=== PATIENT | male | born 1970 ===

== ENCOUNTER 2018-12-24 14:57 | Inpatient (IN) | payer OTHER ==
[2018-12-24 15:03] VITALS: BMI 25.4
--- NOTE | 2018-12-24 15:53 | RAD ---
Date of service: 12/24/2018 HISTORY: possible admission COMPARISON: No prior. FINDINGS: LUNGS: No active pulmonary disease. PLEURA: No significant pleural effusion identified, no pneumothorax apparent. CARDIOVASCULAR: No atherosclerotic calcification present Normal. OSSEOUS STRUCTURES: No significant abnormalities. VISUALIZED UPPER ABDOMEN: Normal. OTHER FINDINGS: None. IMPRESSION: No active disease.
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
[2018-12-24 16:34] LABS: BASO % 0.4 % (0.0-2.0); EOS % 0.5 % (0.0-4.0); HEMOGLOBIN 14.8 g/dL (12.0-18.0); LYMPH # 1.5 K/uL (1.0-4.3); LYMPH % 26.1 % (20.0-40.0); MEAN CELL VOLUME 95.6 fl (80.0-94.0); MEAN CORPUSCULAR HEMOGLOBIN 31.5 pg (27.0-31.0); MEAN PLATELET VOLUME 7.5 fl (7.2-11.7); MONO # 0.4 K/uL (0.0-0.8); MONO % 7.5 % (0.0-10.0); NEUT # 3.9 K/uL (1.8-7.0); NEUT % 65.5 % (50.0-75.0); NRBC % 0.1 % (0.0-0.0); RBC 4.69 Mil/uL (4.40-5.90); RED CELL DISTRIBUTION WIDTH 14.3 % (11.5-14.5); WHITE BLOOD COUNT 5.9 K/uL (4.8-10.8)
--- NOTE | 2018-12-24 16:46 | CT ---
Date of service: 12/24/2018 PROCEDURE: CT HEAD WITHOUT CONTRAST. HISTORY: AMS COMPARISON: None available. TECHNIQUE: Axial computed tomography images were obtained through the head/brain without intravenous contrast. Radiation dose: Total exam DLP = 817.32 mGy-cm. This CT exam was performed using one or more of the following dose reduction techniques: Automated exposure control, adjustment of the mA and/or kV according to patient size, and/or use of iterative reconstruction technique. FINDINGS: HEMORRHAGE: No intracranial hemorrhage. BRAIN: Limited subcortical white matter lucency is appreciated in multiple areas of the bilateral frontal lobes, left greater than right with remaining white matter unremarkable including throughout the corpus callosum as imaged. This is abnormal for the age of the patient and follow-up MRI is advised with and without contrast for added characterization. No cortical edema. No mass effect. No suspicious extra-axial collection with posterior fossa contents unremarkable. VENTRICLES: Unremarkable. No hydrocephalus. CALVARIUM: Unremarkable. PARANASAL SINUSES: Unremarkable as visualized. No significant inflammatory changes. MASTOID AIR CELLS: Unremarkable as visualized. No inflammatory changes. OTHER FINDINGS: None. IMPRESSION: Abnormal white matter lucency may reflect infectious or inflammatory causes or even demyelination though etiology such as hypertension and migraine headaches are a possibility as well. Neoplasm is unlikely. Follow-up MRI with and without contrast is advised for further characterization. If MRI cannot be obtained then follow-up CT with contrast is advised.
[2018-12-24 16:48] LABS: ALB/GLOB RATIO 1.4 (1.0-2.1); ALBUMIN 4.9 g/dL (3.5-5.0); ALT/SGPT 28 U/L (21-72); AST/SGOT 34 U/L (17-59); BLOOD UREA NITROGEN 13 mg/dl (9-20); CALCIUM 9.8 mg/dL (8.4-10.2); GFR NON-AFRICAN AMERICAN > 60
[2018-12-24 16:56] LABS: ABG ALLEN TEST YES; ARTERIAL BLOOD GAS HCO3 28.1 mmol/L (21-28); ARTERIAL BLOOD GAS O2 SAT 99.7 % (95-98); ARTERIAL BLOOD GAS PCO2 41 mm/Hg (35-45); ARTERIAL BLOOD GAS PH 7.45 (7.35-7.45); ARTERIAL BLOOD GAS PO2 89 mm/Hg (80-100); ARTERIAL BLOOD GAS TCO2 29.8 mmol/L (22-28)
[2018-12-24 17:01] LABS: BARBITURATES, UR NEGATIVE (NEGATIVE); BENZODIAZEPINES, UR NEGATIVE (NEGATIVE); OPIATES, UR NEGATIVE (NEGATIVE); PHENCYCLIDINE, UR NEGATIVE (NEGATIVE)
[2018-12-24] MEDS ORDERED: Iohexol 300 100 ML IJ ONE (19:46)
[2018-12-24] MEDS ORDERED: Sodium Chloride 0.9% 50 ML IV ONE (19:47)
[2018-12-24] MEDS: Lactated Ringer's 1,000 ML IV SCH (22:37)
[2018-12-25 00:23] LABS: URINE BILIRUBIN NEGATIVE (NEGATIVE); URINE BLOOD NEGATIVE (NEGATIVE); URINE CLARITY CLEAR (Clear); URINE COLOR STRAW (YELLOW); URINE GLUCOSE (UA) NEG (NEGATIVE); URINE LEUKOCYTE ESTERASE NEG Leu/uL (Negative); URINE PROTEIN NEGATIVE (NEGATIVE); URINE UROBILINOGEN 0.2-1.0 mg/dL (0.2-1.0)
[2018-12-25 06:38] LABS: HEMOGLOBIN 14.3 g/dL (12.0-18.0); MEAN CELL VOLUME 96.1 fl (80.0-94.0); MEAN CORPUSCULAR HEMOGLOBIN 31.6 pg (27.0-31.0); MEAN CORPUSCULAR HGB CONC 32.9 g/dL (33.0-37.0); RBC 4.53 Mil/uL (4.40-5.90); RED CELL DISTRIBUTION WIDTH 14.7 % (11.5-14.5); WHITE BLOOD COUNT 4.9 K/uL (4.8-10.8)
[2018-12-25 07:01] LABS: ALB/GLOB RATIO 1.4 (1.0-2.1); ALBUMIN 4.2 g/dL (3.5-5.0); ALT/SGPT 28 U/L (21-72); AST/SGOT 30 U/L (17-59); BLOOD UREA NITROGEN 11 mg/dl (9-20); CALCIUM 9.3 mg/dL (8.4-10.2); GFR NON-AFRICAN AMERICAN > 60
[2018-12-25] MEDS ORDERED: Gadodiamide 287 MG/ML VIAL (15ML) IV ONE (08:01)
--- NOTE | 2018-12-25 09:06 | CARD ---
APPROVED REPORT Date of service: 12/24/2018 EKG Measurement Heart [id number] <Conclusion> Normal sinus rhythm Normal ECG
--- NOTE | 2018-12-25 11:20 | CT ---
Date of service: 12/24/2018 PROCEDURE: CT HEAD WITH CONTRAST HISTORY: AMS COMPARISON: None available. TECHNIQUE: Axial computed tomography images were obtained through the head/brain with intravenous contrast. Contrast dose: Omnipaque 300, 95 cc Radiation dose: Total exam DLP = 794.59 mGy-cm. This CT exam was performed using one or more of the following dose reduction techniques: Automated exposure control, adjustment of the mA and/or kV according to patient size, and/or use of iterative reconstruction technique. FINDINGS: HEMORRHAGE: No intracranial hemorrhage. BRAIN: Stable limited subcortical white-matter change identified the bilateral cerebral hemispheres, predominantly near the vertex affecting bilateral frontal lobes and possibly left parietal lobe. No mass-effect is seen in the interval or cortical edema. No interval suspicious extra-axial collection with the corpus callosum remaining normal in CT density. No abnormal intracranial enhancement identified including in the areas of subcortical density abnormality. VENTRICLES: Unremarkable. No hydrocephalus. CALVARIUM: Unremarkable. PARANASAL SINUSES: Unremarkable as visualized. No significant inflammatory changes. MASTOID AIR CELLS: Unremarkable as visualized. No mastoid effusion. OTHER FINDINGS: None. IMPRESSION: No interval abnormal intracranial enhancement appreciated. Persistent white matter abnormality remains limited to the bilateral frontal lobe superiorly and possibly left parietal lobe. Follow-up MRI with and without contrast is advised when feasible.
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
--- NOTE | 2018-12-25 15:42 | MRI ---
Date of service: 12/25/2018 PROCEDURE: MRI BRAIN WITH AND WITHOUT CONTRAST HISTORY: amnesia COMPARISON: CT without contrast, head CT with contrast, both from 12/24/2018. TECHNIQUE: Multiplanar, multisequence MR images of the brain were obtained with and without intravenous contrast enhancement. FINDINGS: HEMORRHAGE: None DWI: No evidence of an acute or early subacute infarction. BRAIN PARENCHYMA: White matter signal abnormalities are more widespread than appreciable on prior head CT examinations. Predominantly sub cm increased long TR signal abnormalities are scattered in the subcortical and occasional deep white matter of the bilateral frontal greater than parietal and temporal lobes with occipital lobes minimally involved. Corpus callosum appears unremarkable as well as the brainstem and cerebellum. No mass-effect is identified and following intravenous gadolinium administration, there is no suspicious contrast enhancement appreciate including within the areas of long TR signal abnormality. Nevertheless, the pattern suspicious for demyelinating process. Consider hypertension, migraine headaches, vasculitis and other etiologies including Lyme disease with the differential diagnosis rather broad in general for this MR pattern. ENHANCEMENT: No abnormal intracranial enhancement. VENTRICLES: Unremarkable. No hydrocephalus. CRANIUM: Unremarkable. ORBITS: Grossly unremarkable. PARANASAL SINUSES/MASTOIDS: Clear VASCULAR SYSTEM: Skull base flow voids intact. OTHER FINDINGS: None . IMPRESSION: Relatively widespread subcortical white matter signal abnormality sparing the corpus callosum, brainstem and cerebellum. No abnormal intracranial enhancement. Pattern nevertheless is suspicious for demyelination with other etiologies including hypertension, migraine headaches, vasculitis, Lyme disease and others. Further clinical correlation advised. Exam otherwise unremarkable.
--- NOTE | 2018-12-25 18:24 | CP.PCM.PCO ---
Physician Communication Note - Physician Communication Note Physician Communication Note: I discussed MRI with the patient. Addendum Addendum: I recommended lumbar puncture for CSF analysis, but the patient denied any symptoms of MS and decided that he would prefer to follow up with me in the office for further discussion. I provided him with my office contact info: [phone] and he will call to make an appointment in one month. Currently, the patient is doing well and does not have any focal neurological deficits and is mentally clear. No further recommendations at this time. Thank you.
--- NOTE | 2018-12-25 20:43 | CARD ---
APPROVED REPORT Date of service: 12/25/2018 EXAM: Two-dimensional and M-mode echocardiogram with Doppler and color Doppler. Other Information Quality : AverageRhythm : NSR INDICATION LV Function:SystolicDiastolic 2D DIMENSIONS IVSd0.91 (0.7-1.1cm)LVDd4.70 (3.9-5.9cm) LVOT Diameter2.05 (1.8-2.4cm)PWd0.76 (0.7-1.1cm) IVSs1.30 (0.8-1.2cm)LVDs3.00 (2.5-4.0cm) FS (%) 36.2 %PWs1.13 (0.8-1.2cm) M-Mode DIMENSIONS Left Atrium (MM)2.83 (2.5-4.0cm)IVSd1.03 (0.7-1.1cm) Aortic Root3.29 (2.2-3.7cm)LVDd4.61 (4.0-5.6cm) Aortic Cusp Exc.2.32 (1.5-2.0cm)PWd0.85 (0.7-1.1cm) IVSs1.29 cmFS (%) 35 % LVDs2.99 (2.0-3.8cm)PWs1.06 cm Aortic Valve AoV Peak Cmpozsas922.9cm/sAoV VTI19.6cmAO Peak GR.5mmHg LVOT Peak Sqfrxwso92.8cm/sLVOT VTI16.94cmAO Mean GR.3mmHg THIAGO (VMAX)1.77fw0WAU (VTI)1.79cm2 Mitral Valve MV E Ifffnncy23.8cm/sMV DECEL HYJC033mfPB A Mwwggomk41.0cm/s MV QBN04ykK/A ratio0.8MVA (PHT)3.59cm2 TDI Lateral E' Peak V12.79cm/sMedial E' Peak V8.31cm/sE/Lateral E'4.0 E/Medial E'6.1 LEFT VENTRICLE The left ventricle is normal size. There is normal left ventricular wall thickness. The left ventricular systolic function is normal. The estimated ejection fraction is 55-60% No regional wall motion abnormalities noted.. Transmitral Doppler flow pattern is Grade I-abnormal relaxation pattern. No left ventricle thrombus noted on this study. There is no ventricular septal defect visualized. There is no left ventricular aneurysm. There is no mass noted in the left ventricle. RIGHT VENTRICLE The right ventricle is normal size. There is normal right ventricular wall thickness. The right ventricular systolic function is normal. ATRIA The left atrium size is normal. The right atrium size is normal. The interatrial septum is intact with no evidence for an atrial septal defect. AORTIC VALVE The aortic valve is normal in structure. No aortic regurgitation is present. There is no aortic valvular stenosis. There is no aortic valvular vegetation. MITRAL VALVE The mitral valve is normal in structure. There is no evidence of mitral valve prolapse. There is no mitral valve stenosis. There is no mitral valve regurgitation noted. TRICUSPID VALVE The tricuspid valve is normal in structure. There is no tricuspid valve regurgitation noted. There is no tricuspid valve prolapse or vegetation. There is no tricuspid valve stenosis. PULMONIC VALVE The pulmonary valve is normal in structure. There is no pulmonic valvular regurgitation. There is no pulmonic valvular stenosis. GREAT VESSELS The aortic root is normal in size. The ascending aorta is normal in size. The pulmonary artery is normal. The IVC is normal in size and collapses >50% with inspiration. PERICARDIAL EFFUSION There is no pericardial effusion. There is no pleural effusion. <Conclusion> The estimated ejection fraction is 55-60% Transmitral Doppler flow pattern is Grade I-abnormal relaxation pattern. The left atrium size is normal. There is no tricuspid valve regurgitation noted. The IVC is normal in size and collapses >50% with inspiration.
[2018-12-25] MEDS: Lactated Ringer's 1,000 ML IV SCH ×2 (20:54→23:17)
[2018-12-26 01:36] VITALS: PULSE 65; TEMP 97.8; O2SAT 97
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
[2018-12-26 09:33] VITALS: BP 126/79; RESP 20
== END 2018-12-26 10:22 | disposition home or self-care (01) | DRG 72 ==
LOC: H.ER 14:57 → H.ERHOLD 19:05 → H.MEDSURG1 21:37
PROVIDERS: ADMIT Family Medicine; ATTEND Family Medicine
DX: G45.4 Transient global amnesia (principal); F43.0 Acute stress reaction; I10 Essential (primary) hypertension